=== PATIENT | male | born 1990 ===

== ENCOUNTER 2020-06-26 22:27 | Emergency (ER) | payer SELFPAY ==
[2020-06-26 22:39] VITALS: BP 134/99; PULSE 95; RESP 20; TEMP 36.2; O2SAT 100
--- NOTE | 2020-06-27 02:00 | PC.NURSE ---
0156- n/a when called to be roomed.
== END 2020-06-27 02:00 | disposition left against medical advice (07) ==
DX: R20.0 Anesthesia of skin (principal)
CPT/HCPCS: 99199